=== PATIENT | female | born 1975 | race African-American/Black ===

== ENCOUNTER → 2020-11-26 15:10 | Outpatient (CLI) | payer OTHER, SELFPAY ==
--- NOTE | ~2020-11-26 | US_ITS ---
EXAMINATION: US transvaginal EXAM DATE: 11/26/2020 15:44 INDICATION: Abnormal uterine bleeding, measure endometrial stripe . TECHNIQUE: Pelvic transvaginal sonogram was performed. There are multiple grayscale and Doppler imag es available for interpretation. There is no prior study for comparison. FINDINGS: Uterus measures 10.7 x 5.2 x 6.5 cm, with multiple fibroids, largest 4.1 cm. Endometrial s tripe measures 4 mm, within normal limits. There is no free pelvic fluid. Right adnexa: The ovary measures 2.9 x 2.8 x 2.8 cm and is morphologically normal, contains the domin ant physiologic follicle. Ovarian vascular flow confirmed. Left adnexa: The ovary is not identified. There is no adnexal mass. IMPRESSION: 1. Fibroid uterus. Reviewed, dictated and finalized at location A. [employer] IMPRESSION: 1. Fibroid uterus.
== END ==
PROVIDERS: Visit Provider Obstetrics & Gynecology Gynecology
DX: N93.8 Other specified abnormal uterine and vaginal bleeding (principal); D25.9 Leiomyoma of uterus, unspecified
CPT/HCPCS: 76830

== ENCOUNTER 2021-12-08 11:27 | Emergency (ER) | payer OTHER, SELFPAY ==
--- NOTE | ~2021-12-08 | XR_ITS ---
EXAMINATION: XR foot LT min 3V EXAM DATE: 12/08/2021 11:56 INDICATION: Heavy metal fell onto left distal 1st metatarsal. TECHNIQUE: Left foot dorsoplantar, lateral and oblique projections obtained and reviewed. There is n o prior study for comparison. FINDINGS: Left metatarsal bones unremarkable. There is tiny calcaneal inferior spur. There are no acute fractures or dislocations identified. There is no subcutaneous gas. There is soft tissue swell ing over the 1st metatarsal head. There are no radiopaque foreign bodies. IMPRESSION: 1. XR foot LT min 3V exam without acute osseous findings. Reviewed, dictated and finalized at location B. [employer]
[2021-12-08 11:40] VITALS: BP 158/103; PULSE 76; RESP 16; TEMP 36.9; O2SAT 99
--- NOTE | 2021-12-08 12:09 | ED.LOWEXIN ---
HPI - Extremity Injury (Lower) General Chief Complaint: Extremity Injury, Lower Stated Complaint: left foot pain Time Seen by Provider: 12/08/21 12:09 Source: patient Mode of arrival: ambulatory Limitations: no limitations History of Present Illness HPI Narrative: Johanna Hodges is a 46 yo female with compression injury of L foot after ramp fell on L foot this morning causing her to fall. Related Data Home Medications Medication Instructions Recorded Confirmed citalopram mg 12/08/21 diltiazem HCl PO 12/08/21 esomeprazole magnesium mg 12/08/21 metoprolol succinate PO 12/08/21 Allergies Allergy/AdvReac Type Severity Reaction Status Date / Time No Known Allergies Allergy Unverified 12/31/18 07:04 Review of Systems Review of Systems: CONSTITUTIONAL: Denies fever, chills, sweats. EYES: Denies visual changes, redness, discharge. ENT: Denies rhinorrhea, congestion, sore throat, otalgia. CARDIOVASCULAR: Denies chest pain, palpitations, edema. RESPIRATORY: Denies dyspnea, wheezing, cough GASTROINTESTINAL: Denies abdominal pain, nausea, vomiting, diarrhea. GENITOURINARY: Denies dysuria, hematuria, abnormal discharge SKIN: Denies rash or itching. NEUROLOGIC: Denies numbness, or focal weakness. PSYCHIATRIC: Denies anxiety or depression. Left lower foot pain PMFSH Past Medical History Medical History Depression Hypertension Social History Social History (Updated 12/08/21 @ 12:15 by Rajani Mart CNP) Smoking status: Never smoker Alcohol intake: current Comments At time of signature, I agree with nursing past medical, surgical, social and family history. There is no relevant family history pertinent to the presenting complaint. Exam Narrative: GENERAL: This is a well-nourished, well-developed patient, in mild distress. HEAD: normocephalic, atraumatic. EYES: . Sclera clear/white. Vision is grossly intact. EARS: External ears normal,. Hearing grossly intact. NOSE: External nose normal without nasal discharge, nares without redness, no rhinorrhea. THROAT: Mucous membranes moist, NECK: Neck supple, non-tender CARDIOVASCULAR: Regular rate and rhythm without murmurs, gallops, or rubs. RESPIRATORY: Clear to auscultation. Breath sounds equal bilaterally. No wheezes, rales, or rhonchi. GASTROINTESTINAL: Abdomen soft, non-tender, SKIN: warm, intact with no suspicious lesions or rash, good texture and turgor. NEURO: awake, alert, and oriented to person, place and time. There were no obvious focal neurologic abnormalities. Steady gait EXTREMITIES: Normal range of motion. Full range of motion of arms with no tenderness on back except down lumbar back-left foot swelling at the base of great toe with ecchymosis BACK: Nontender without deformity Course Course Emergency Course: Patient had a fall backwards when a ramp dropped on her left foot Xray L foot: -Left metatarsal bones are unremarkable there is a spur no acute fracture or dislocation no subcutaneous gas there is soft tissue child swelling over first metatarsal head Started on baclofen for back pain and tension placed left foot in postop shoe and given tramadol for pain (has high blood pressure) Level of Care: Express Care Visit Vital Signs Vital signs: Vital Signs Temperature 98.4 F 12/08/21 11:40 Pulse Rate 76 12/08/21 11:40 Respiratory Rate 16 12/08/21 11:40 Blood Pressure 158/103 H 12/08/21 11:40 Pulse Oximetry 99 12/08/21 11:40 Temperature 98.4 F 12/08/21 11:40 Pulse Rate 76 12/08/21 11:40 Respiratory Rate 16 12/08/21 11:40 Blood Pressure 158/103 H 12/08/21 11:40 Pulse Oximetry 99 12/08/21 11:40 MDM - Extremity Injury (Lower) Differential Diagnosis Differential diagnosis: Likely ankle sprain and strain, fracture of femur, puncture wound of foot, fracture of toe and ankle fracture Critical Care Time Critical Care Time Critical Care Time: No Disch
== END 2021-12-08 12:38 | disposition home or self-care (01) ==
PROVIDERS: Emergency Provider Nurse Practitioner
DX: S99.922A Unspecified injury of left foot, initial encounter (principal); W20.8XXA Other cause of strike by thrown, projected or falling object, initial encounter; I10 Essential (primary) hypertension; F32.A Depression, unspecified
CPT/HCPCS: 73630; 99213; G0463

== ENCOUNTER 2023-01-31 11:01 | Emergency (ER) | payer OTHER, SELFPAY ==
[2023-01-31 11:12] VITALS: BP 162/99; PULSE 87; RESP 14; TEMP 36.4; O2SAT 100
[2023-01-31 11:15] VITALS: BP 162/99; PULSE 87; RESP 14; TEMP 36.4; O2SAT 100
--- NOTE | 2023-01-31 11:45 | ED.EAR ---
HPI - Ear Problem General Chief complaint: Ear Stated complaint: left ear pain Time Seen by Provider: 01/31/23 11:45 Source: patient, RN notes reviewed and old records reviewed Mode of arrival: ambulatory Limitations: no limitations History of Present Illness HPI Narrative: 47-year-old female presents to the [facility] with complaints of left ear pain. Patient had been seen by her primary care provider on January 16, diagnosed with influenza as well as an ear infection. Patient states that she was prescribed steroid, Cipro and Cipro drops for her influenza. States that on the 26 of January patient called saying she was not better was given some more Medrol Dosepak patient states she has recently finished them is still not better. Has a history of hypertension and currently under treatment, has not taken her medication today. Related Data Home Medications Medication Instructions Recorded Confirmed aspirin 81 mg chewable tablet 81 mg PO DAILY 01/31/23 01/31/23 fexofenadine-pseudoephedrine ER 1 tablet PO QAM 01/31/23 01/31/23 180 mg-240 mg tablet,ext.release 24 hr (Tangela-D 24 Hour) fluticasone propionate 50 intranasal 01/31/23 mcg/actuation nasal spray,suspension losartan 50 mg tablet mg 01/31/23 01/31/23 Allergies Allergy/AdvReac Type Severity Reaction Status Date / Time amlodipine [From Norvasc] Allergy Swelling Verified 01/31/23 11:14 lisinopril Allergy Swelling Verified 01/31/23 11:14 of Lip/Tongue/Throat metoclopramide [From Reglan] Allergy Anxiety Verified 01/31/23 11:14 Review of Systems Review of Systems: All systems reviewed & are unremarkable except as noted in HPI and below Constitutional: Constitutional: Reports no additional constitutional complaints Eyes: Eyes: Reports no additional eye complaints ENT: Reports as per HPI Cardiovascular: Cardiovascular: Reports no additional cardiovascular complaints, Denies chest pain and Denies dyspnea Respiratory: Respiratory: Reports no additional respiratory complaints, Denies chest congestion, Denies cough and Denies dyspnea Gastrointestinal: Gastrointestinal: Reports no additional gastrointestinal complaints, Denies abdominal pain, Denies nausea and Denies vomiting Musculoskeletal: Musculoskeletal: Reports no additional musculoskeletal complaints Integumentary/Breasts: Skin/Breast: Reports system reviewed and no additional complaints, except as docu Neurologic: Reports system reviewed and no additional complaints, except as documented Psychiatric: Psychiatric: Reports no additional psychiatric complaints Allergic/Immunologic: Allergic/Immunologic: Reports no additional allergic/immunologic complaints PMFSH Past Medical History Medical History Depression Hypertension Social History Social History Smoking status: Never smoker Alcohol intake: current Comments At the time of my signature, I reviewed and agree with the nursing past medical, surgical, social, and family history. There is no relevant family history pertinent to the patient complaint. Exam Const: General: cooperative, healthy appearing, comfortable, no acute distress, well developed, alert and well nourished Nutritional Appearance: well nourished Orientation/consciousness: patient oriented x3 Limitations: no limitations HENMT: Head: normal to inspection Ears: hearing grossly normal bilaterally, external ears normal, TM normal on the right, EAC's normal, no periauricular adenopathy, normal mastoids bilaterally and TM abnormal bulging on the left and with fluid behind the TM on the left; not erythematous, with no loss of landmarks, not obstructed by cerumen, not perforated and not retracted Face/Nose/Sinus: Normal external nose present, Normal nares present, Normal nasal mucous membranes and turbinates present and normal facial exam Face and sinus: n
== END 2023-01-31 12:08 | disposition home or self-care (01) ==
PROVIDERS: Emergency Provider Nurse Practitioner
DX: H65.02 Acute serous otitis media, left ear (principal); I10 Essential (primary) hypertension; Z79.82 Long term (current) use of aspirin
CPT/HCPCS: 99211; G0463

== ENCOUNTER 2024-06-25 11:56 | Outpatient (CLI) | payer OTHER, SELFPAY ==
--- NOTE | ~2024-06-25 | US_ITS ---
EXAMINATION: US transvaginal DATE: 06/25/2024 12:28 INDICATION: Right lower quadrant abdominal pain. TECHNIQUE: Multiple transvaginal sonographic images of the pelvis were obtained. COMPARISON: Ultrasound 11/26/2020 FINDINGS: The uterus measures 11.6 x 5.7 x 7.3 cm. There is no free fluid in the pelvis. The endometrial comple x measures 3 mm in thickness. There is a 4.1 cm intramural fibroid. There is a 2.8 cm intramural fibr oid. The right ovary measures 3.0 x 3.2 x 3.4 cm. There is vascular flow in right ovary. The left ova ry is not visualized. IMPRESSION: 1. Uterine fibroids. 2. Left ovary not visualized. Reviewed, dictated and finalized at location A.
== END 2024-06-25 11:57 ==
LOC: MICIMG 11:57
PROVIDERS: PCP Advanced Practice Midwife; Visit Provider Advanced Practice Midwife
DX: R10.2 Pelvic and perineal pain (principal); N83.201 Unspecified ovarian cyst, right side; D25.9 Leiomyoma of uterus, unspecified
CPT/HCPCS: 76830